=== PATIENT | male | born 1950 | race Caucasian/White ===

== ENCOUNTER → 2021-03-13 | Outpatient (CLI) | payer OTHER ==
[~2021-03-13] VITALS: Ht 170.2 cm; Wt 108.2 kg
[~2021-03-13] MED LIST: ACTOS 30 MG TAB30 M1 PO; ADULT LOW DOSE81 MG PO; BACTRIM DS TAB1 EACH PO; CHLORTHALIDONE25 MG PO; COLACE 100 MG100 MG PO; HYDROCHLOROTH12.5 M1; IBUPROFEN 400400 M2 PO; IBUPROFEN 800800 M1 PO; JARDIANCE25 MG PO; KEFLEX500 MG; LIPITOR 20 MG T20 M1 PO; LISINOPRIL2.5 MG PO; LISINOPRIL20 MG PO; LOPRESSOR50 MG PO; LOTREL 10-20 M1 EACH PO; METFORMIN HCL500 M3 PO; METOPROLOL TART25 MG PO; NORCO 5-325 TA1 EACH PO; NORVASC 2.5 MG2.5 M1 PO; OMEPRAZOLE 20 M20 M1; ONDANSETRON HCL4 M2 PO; PERCOCET 5-3251 EACH; POTASSIUM20 PO; PREDNISONE 10 M10 MG PO; PRILOSEC2.5 MG PO; SILDENAFIL CITR50 MG PO; ZOFRAN ODT4 MG PO; [UNRECOGNIZED DRUG - OTHER]
[2021-03-13 07:56] LABS: ABSOLUTE NEUTROPHILS 3.2 thou/uL (1.4-8.2); BASOPHILS 0.6 % (0.0-2.0); EOSINOPHILS 2.6 % (0.0-3.0); HEMATOCRIT 42.6 % (42.0-52.0); HEMOGLOBIN 14.5 gm/dL (14.0-18.0); LYMPHOCYTES 34.3 % (24.0-44.0); MCH 29.7 pg (26.0-34.0); MCHC 34.1 g/dL (28.0-37.0); PLATELET COUNT 166 thou/uL (150-400); POLYS 55.5 % (36.0-66.0); RBC 4.89 mil/uL (4.50-6.00); RDW 13.7 % (10.5-14.5); WBC 5.7 thou/uL (4.0-11.0)
[2021-03-13 07:58] VITALS: BP 143/75
[2021-03-13 08:05] LABS: CALCIUM 9.2 mg/dL (8.5-10.1); CREATININE 0.8 mg/dL (0.7-1.3); POTASSIUM 3.4 mmol/L (3.5-5.1)
[2021-03-13 08:11] LABS: TOTAL BILIRUBIN 0.5 mg/dL (0.2-1.0); TOTAL PROTEIN 7.8 g/dL (6.4-8.2)
[2021-03-13 08:14] LABS: INR 0.98; PROTIME 10.7 Seconds (10.5-12.1)
--- NOTE | 2021-03-16 11:26 | P ---
[facility] [place] [address] PROCEDURE REPORT Name: MALI RENEE Room #: REG JASMINE Macias#: [id number] Admission: 03/13/21 Attend Phys: Maycol Michelle MD Discharge: Date of : 48 Report #: [id number] THIS REPORT FOR: cc: Calli Momin MD,Calli Michelle,Maycol Coulter MD ~ DATE OF SERVICE: 03/13/2021 PREOPERATIVE DIAGNOSIS: Supraventricular tachycardia. 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 PROCEDURES PERFORMED: 1. SVT ablation -- CPT code 29101. 2. EP left atrial pacing recording, CPT code 47645. 3. Program stimulation pacing after IV drug infusion, CPT code 21641. 4. 3D mapping, CPT code 77172. HISTORY: The patient is a 70-year-old male with a history of longstanding SVT, recently with recurrent SVT documented in the emergency room that terminated with IV adenosine. His EKG was consistent with typical AV bob reentrant tachycardia. He is here for EP study and ablation. ANESTHESIA: The patient underwent MAC anesthesia with no anesthesia related complications. Because of his heavy breathing and sleep apnea and a lot of movement of the catheter during the procedure, I did have them put an LMA in him as we were ablating close to the AV node, which definitely helped his respiratory variation of the ablation catheter. DESCRIPTION OF PROCEDURE: The patient underwent informed consent. We discussed the details of the procedure including the risks, which include but not limited to bleeding, vascular damage, stroke, NC, cardiac perforation as well as damage to the conduction system requiring permanent pacemaker. He understood these risks and is willing to proceed. The patient was brought to the EP laboratory in fasting and sedated state, prepped and draped in a standard fashion. I obtained access to the right femoral vein times 4, placing 8, 2, 6 and a 7-Irish short sheath using the modified Seldinger technique. Under fluoroscopy, I placed 3 quadripolar catheters at the HRA, His and RV position and a decapolar catheter easily in the coronary sinus for left atrial pacing and recording. At baseline, the patient was in sinus rhythm with a sinus cycle length of 800 milliseconds, OH interval 200 milliseconds, QRS duration 89 milliseconds, QT interval 420 milliseconds, AH interval 135 milliseconds, HV interval 35 milliseconds. Next, atrial pacing was [facility] [address] [place] [address] PROCEDURE REPORT Name: MALI RENEE Francisco [id number] Admission: 03/13/21 Attend Phys: Maycol Michelle MD Discharge: Date of : 48 Report #: [id number] performed and AV block was noted at 400 milliseconds. AV bob ERP was noted at 390 milliseconds at a [address] cycle length. I did notice single AV bob echoes. Ventricular pacing was performed and VA block was at 320 milliseconds and ventricular ERP was noted at 230 milliseconds at a [address] cycle length. VA conduction was both midline and decremental. Next, isoproterenol infusion was initiated at 2 mcg per minute and with atrial burst pacing or single atrial extrastimuli, I would get anywhere from 3-7 beats of SVT that was consistent with typical AVNRT and would terminate with an A. There were few times that when I increased isoproterenol to 3 mcg per minute and it looked like we were getting AVNRT with 2:1 block. Despite aggressive atrial and ventricular pacing maneuvers, I could not get sustained SVT to perform entrainment but based on what I have seen on his 12-lead EKG and the fact that this terminated with adenosine and we were getting episodes consistent with typical AVNRT terminating with an A, a diagnosis of typical AV bob reentrant tachycardia was made. A 3D mapping and ablation, next I opened up a 4 mm ablation catheter, an SR0 sheath and exchanged this for the HRA catheter. I created a 3D geometry of the right atrium with specific emphasis of the His bundle region and slow pathway region. When I was mapping the slow pathway, it was clear that the patient's deep breathing was going to limit my stability of my ablation catheter, so at this point we did have the patient undergo placement of an LMA and this definitely helped out the situation. Next, I started performing ablation at the slow pathway region. It did appear that he had a larger than usual right ventricle and I did not have the perfect A/V ratios. I performed a total of 7 lesions, each for about 40-50 seconds with no junctionals. After the seventh lesion, catheter manipulation actually resulted in AVNRT with a septal VA time of 35 milliseconds and a tachycardia cycle length of 650 milliseconds. Therefore, it appears that I had modified the slow pathway now that we were having some sustained AVNRT. I then performed 3 further lesions slightly higher than the previous lesions and slightly outside of the coronary sinus with a nice atrial signal and on these lesions I got perfect slow junctionals. As such, an EP study was performed. Post-ablation EP study was performed and AV block was noted at 400 milliseconds. AV bob ERP was noted at 280 milliseconds at [address] cycle length. Next, isoproterenol infusion was started at 2 mcg per minute. Ventricular pacing was performed and VA block was noted to be less than 270. Ventricular ERP was 190 at [address] cycle length. AV block was noted at 300 milliseconds. AV bob ERP was noted at 290 milliseconds at a [address] cycle length. We were now no longer getting any AV bob echoes and we are no longer having long AH intervals to suggest conduction [facility] [address] [place] [address] PROCEDURE REPORT Name: MALI RENEE Room #: REG SUDHIRRamesh Douglas#: [id number] Admission: 03/13/21 Attend Phys: Maycol Michelle MD Discharge: Date of : 48 Report #: [id number] via slow pathway. We turned off isoproterenol and continued testing and we could no longer induce these short bursts of AVNRT that were seen before. As such, the procedure was concluded. Catheters and sheaths were pulled. Hemostasis was obtained. The patient awoke neurologically and hemodynamically intact. No complications and no significant bleeding. CONCLUSION: 1. Successful ablation of typical AV bob reentrant tachycardia. 2. Normal SA bob function. 3. Normal AV bob function. 4. Normal His-Purkinje function. 5. No other inducible arrhythmias on or off isoproterenol. <ELECTRONICALLY SIGNED> By: Maycol Michelle MD 03/16/21 [id number] Maycol Michelle MD /nt
== END | disposition home or self-care (01) ==
LOC: CATH 06:26
PROVIDERS: ATTEND Internal Medicine Cardiovascular Disease
DX: I47.1 Supraventricular tachycardia (principal); I10 Essential (primary) hypertension; E11.9 Type 2 diabetes mellitus without complications; G47.30 Sleep apnea, unspecified; K21.9 Gastro-esophageal reflux disease without esophagitis; E66.09 Other obesity due to excess calories; Z98.890 Other specified postprocedural states; Z79.899 Other long term (current) drug therapy; Z87.891 Personal history of nicotine dependence; Z82.49 Family history of ischemic heart disease and other diseases of the circulatory system; Z86.73 Personal history of transient ischemic attack (TIA), and cerebral infarction without residual deficits; Z88.6 Allergy status to analgesic agent; Z20.822 Contact with and (suspected) exposure to COVID-19; Z79.01 Long term (current) use of anticoagulants
CPT/HCPCS: 62110; 62900; 70005